=== PATIENT | female | born 1940 | race Caucasian/White ===

== ENCOUNTER → 2017-06-30 | Outpatient (CLI) | payer OTHER ==
[~2017-06-30] MED LIST: CELEBREX 200 M200 M1 PO; CIPRO500 M1 PO; COLACE100 MG PO; FLAGYL500 MG PO; FLEXERIL PO; HYDROCODONE-APA1 TA1 PO; NEURONTIN 300300 M1 PO; NORVASC5 MG PO; OXYCODONE HCL 55 MG; OXYCODONE HCL 55 MG PO; PHENAZOPYRIDIN200 M2 PO; PRILOSEC 20 MG20 MG PO; PROTONIX40 M1 PO; TYLENOL325 MG PO; ZESTORETIC 10-1 EACH PO; ZOCOR20 MG PO; ZOFRAN ODT4 MG PO
--- NOTE | 2017-07-20 08:18 | PAINCON ---
[address] [address] PAIN MANAGEMENT CONSULTATION Name: JAZMÍN ERICKSON Room: [facility] Suazo.#: [id number] Admission: 06/30/17 Attend Phys: Etta Pearce MD Discharge: Date of : 39 Report #: [id number] THIS REPORT FOR: //name// CC: Dr. Jackson Pearce DATE OF SERVICE: 06/30/2017 FOLLOWUP COMPLAINT: Back pain with pain down into the left leg. HISTORY OF PRESENT ILLNESS: The patient is a 76-year-old female who has returned to the pain clinic for evaluation. She is a patient who has been followed by Dr. Christofer Engel. This is my first visit with the patient. She has pain, which is radiating down into her left leg. Described as burning. She has responded well in the past to epidural steroid injections over the years. She used to follow up with Dr. Hughes. She states that he is no longer practicing. Notes that the pain is problematic when she is at rest and is exacerbated by activities such as prolonged sitting. She has been using hydrocodone. She finds that this is helpful. Her pain began in February 2014. There was no inciting injury or trauma. She has been diagnosed with lumbar radiculopathy with spinal stenosis of the lumbar spine. She has tried a number of medical therapies. She has used gabapentin. She has undergone epidural steroid injections and would like to proceed with an epidural injection today to help control her pain. ALLERGIES: MORPHINE, CODEINE, HYDROCODONE, MELOXICAM. CURRENT MEDICATIONS: Tylenol 325 mg 2 tablets every 6 hours p.r.n., Norvasc 5 mg at bedtime, lisinopril/hydrochlorothiazide 10/12.5 daily, Prilosec 20 mg daily, Zocor 20 mg at bedtime. Medication used in the past, gabapentin 300 mg. PAST MEDICAL HISTORY: 1. Symptomatic lumbar radiculopathy. 2. Spinal stenosis of lumbar spine. 3. Lumbosacral spondylosis, without myelopathy. 4. 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 5. Chronic intractable pain. 6. Hypertension. 7. Dyslipidemia. 8. Gastroesophageal reflux. 9. Lower extremity pain with paresthesia. SURGICAL HISTORY: 1. [place] [address] PAIN MANAGEMENT CONSULTATION Name: JAZMÍN ERICKSON Room: [facility]#: [id number] Admission: 06/30/17 Attend Phys: Etta Pearce MD Discharge: Date of : 39 Report #: [id number] 2. Cholecystectomy. 3. Ankle surgery. 4. Appendectomy. SOCIAL HISTORY: The patient worked as a guarded. Denies use of IV drugs. Denies use of alcohol. REVIEW OF SYSTEMS: Wears glasses, awakes at night to urinate, joint pain, muscle pain and cramps. LABORATORY DATA: No laboratory values are available at the time of our interview. PAIN CLINIC QUESTIONNAIRE: 1. The patient has osteoarthritis of her left knee. 2. Height 5 feet 5 inches. 3. Weight 188 pounds, BMI is 31.5. 4. Vital Signs: Blood pressure 123/75, pulse 85, respiratory rate 16, room air saturations 100%, temperature 97.8. 5. Pain intensity 10. 6. Fall risk. The patient has not fallen in the last 3 months. 7. Blood thinner. The patient is not on a blood thinner. 8. History of hypertension. The patient is being treated for hypertension. 9. Opioid greater than 6 weeks. The patient is under contract with the pain clinic and does receive opioid medications greater than 6 weeks. 10. Risk assessment tool. 11. Functional assessment tool. 12. Recreational drug use. The patient denies use of recreational drugs. 13. Tobacco. The patient denies use of tobacco. 14. Alcohol use. The patient denies use of alcoholic beverages. PHYSICAL EXAMINATION: GENERAL: The patient is a well-developed white female. She appears her stated age. She is alert and oriented x 3. Affect is appropriate. Speech is fluent. HEAD, EYES, EARS, NOSE, AND THROAT: Normocephalic, atraumatic. Extraocular eye muscles intact. Sclerae is nonicteric. Hearing is within normal limits. Mucous membranes are moist. The patient appears to have dentures. NECK: Without JVD or adenopathy. HEART: Regular rate. S1, S2. CHEST: Clear to auscultation without rales or rhonchi. ABDOMEN: Nontender. MUSCULOSKELETAL: Within normal limits without significant kyphosis, scoliosis or lordosis. EXTREMITIES: Upper extremity exam 5/5 for the major muscle groups of the upper extremity with symmetry and without sensory changes. Lower back: The patient has pain and discomfort in the lower portion of her back in [place] [address] PAIN MANAGEMENT CONSULTATION Name: JAZMÍN ERICKSON Room: [facility]#: [id number] Admission: 06/30/17 Attend Phys: Etta Pearce MD Discharge: Date of : 39 Report #: [id number] and right L5 paraspinous muscles. The patient has pain which is radiating down the posterior portion of her left leg. Muscle bulk in the lower extremities, appears to be symmetrical and equal. General muscle strength is 5/5. Straight leg raise on the left is positive. Gait slightly antalgic favoring the left lower extremity. ASSESSMENT: 1. Symptomatic lumbar radiculopathy with pain radiating down into the left leg. 2. Spinal stenosis of lumbar spine. 3. 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 4. Lumbosacral spondylosis without myelopathy. 5. Chronic intractable pain. 6. Hypertension. 7. Hyperlipidemia. 8. Gastroesophageal reflux disease -- patient stopped taking gabapentin secondary to GI problems. 9. Left lower extremity pain with paresthesia. RECOMMENDATIONS: We discussed treatment options with the patient. Risks and benefits of an epidural steroid injection were discussed. Possible complications of the procedure were reviewed. At this juncture, the patient would like to proceed with an epidural steroid injection. She is having pain and discomfort in the L5-S1 distribution on the left with radiation down into her leg with numbness, weakness and tingling. She would like to proceed. Possible complication of the procedure, which could include infection, increased bleeding, headache, nerve damage, no improvement in pain were discussed with the patient elects to proceed. PROCEDURE NOTE: The patient was taken to the procedure area. Her back was sterilely prepped with a Betadine solution. Fluoroscopy used in the anterior, posterior as well as lateral approach was used to identify the target side of the left L5-S1 paraspinous area. 0.25% bupivacaine was infiltrated into this area. It had been sterilely prepped with Betadine. A 17-gauge Tuohy with loss of resistance technique was used to gain access to the epidural space. There was no CSF, heme or paresthesia. Total of 80 mg Depo-Medrol, 40 mg triamcinolone and 2 mL of 0.25% bupivacaine was injected. The patient tolerated the procedure well. There were no complications. Her procedure was done. A Band-Aid was placed at the site. There was no bleeding. A total of 17 seconds fluoroscopy time was used. The pain was described as 0/10 at the time of discharge. She will continue with her current medications. A script for oxycodone 5 mg t.i.d. has been written. Also, the patient has been given a script for gabapentin. Hopefully, her stomach will tolerate this medication and continue to [place] [address] PAIN MANAGEMENT CONSULTATION Name: JAZMÍN ERICKSON Room: [facility]#: [id number] Admission: 06/30/17 Attend Phys: Etta Pearce MD Discharge: Date of : 39 Report #: [id number] We would like to thank you for letting us to participate in her care. We hope she continues to improve. <ELECTRONICALLY SIGNED> By: Etta Perace MD 07/20/17817 [id number]. Oneil Pearce MD /PMT
== END ==
LOC: M.PC 01:27
DX: M51.16 Intervertebral disc disorders with radiculopathy, lumbar region (principal); M48.061 Spinal stenosis, lumbar region without neurogenic claudication; M47.817 Spondylosis without myelopathy or radiculopathy, lumbosacral region; G89.29 Other chronic pain; I10 Essential (primary) hypertension; E78.5 Hyperlipidemia, unspecified; K21.9 Gastro-esophageal reflux disease without esophagitis; Z90.710 Acquired absence of both cervix and uterus; Z90.49 Acquired absence of other specified parts of digestive tract; Z98.890 Other specified postprocedural states; Z68.31 Body mass index [BMI] 31.0-31.9, adult

== ENCOUNTER → 2018-02-23 | Outpatient (CLI) | payer OTHER ==
--- NOTE | 2018-02-24 17:20 | PAINCON ---
[address] [address] PAIN MANAGEMENT CONSULTATION Name: JAZMÍN ERICKSON Room: [facility] Suazo.#: [id number] Admission: 02/23/18 Attend Phys: Etta Pearce MD Discharge: Date of : 39 Report #: [id number] THIS REPORT FOR: //name// CC: Jackson Pearce DATE OF SERVICE: 02/23/2018 FOLLOWUP HISTORY: The patient is a very pleasant 77-year-old female who has been seen in the pain clinic in the past. She has undergone epidural steroid injection. She has pain, which has been radiating down into her legs bilaterally, described as a burning pain and discomfort. She underwent an epidural steroid injection in 06/2017, she has noted some significant improvement as a result. Over the last few weeks, she has noted worsening of her pain and recurrence of her discomfort. Pain is radiating down into her low back with discomfort down into her knees bilaterally. The patient fell about a month ago, she injured her right leg and knee. She was told that she had a small muscle tear after she was seen in the Emergency Room. She states that her right knee swelled up significantly. Swelling has reduced somewhat at this juncture. She rates her pain as a 6/10. Feels that OxyIR, which she takes rarely and gabapentin continued to be helpful. She would like to undergo another injection today with hopes that her pain would improve. ALLERGIES: MORPHINE, CODEINE, HYDROCODONE, AND MELOXICAM. CURRENT MEDICATIONS: Tylenol 325 mg 2 tablets q. 6 hours p.r.n., Norvasc 5 mg at bedtime, lisinopril/hydrochlorothiazide 10/12.5 daily, Prilosec 20 mg, Zocor 20 mg at bedtime, and gabapentin 300 mg. PAIN CLINIC ASSESSMENT AND PQRS: 1. The patient has osteoarthritic changes in her left knee. 2. Height 5 feet 5 inches, weight 174 pounds, and BMI is 29. 3. Vital signs: Blood pressure 142/62, heart rate 78, respiratory rate 16, room air saturation is 98%, and temperature 97.9. 4. Pain intensity, 10. 5. Fall risk. The patient did fall about a month ago. She was seen in the Emergency Room. 6. Blood thinner. The patient is not on a blood thinning medication. 7. Hypertension. The patient is being treated for hypertension. 8. Opioids greater than 6 weeks. The patient is under contract with the pain clinic and receives her medications from one source. 9. Risk assessment tool, low for opioid use. 10. Functional assessment tool. 11. Recreational drug use. The patient denies use of recreational drugs. 12. Tobacco: The patient denies use of tobacco. 13. Alcohol: The patient denies [place] [address] PAIN MANAGEMENT CONSULTATION Name: JAZMÍN ERICKSON Room: [facility]#: [id number] Admission: 02/23/18 Attend Phys: Etta Pearce MD Discharge: Date of : 39 Report #: [id number] PHYSICAL EXAMINATION: GENERAL: The patient is a well-developed, well-nourished white female. Appears her stated age. She is alert and oriented x 3. Her affect is appropriate. Speech is fluent. Appears happy. HEENT: Normocephalic, atraumatic. Extraocular eye muscles intact. Sclerae nonicteric. Hearing within normal limits. Mucous membranes are moist. NECK: Without JVD or adenopathy. HEART: Regular rate. S1, S2. CHEST: Clear to auscultation. ABDOMEN: Nontender. MUSCULOSKELETAL: Without significant kyphosis, scoliosis, or lordosis. Upper extremity muscle strength is judged to be ____ for the major muscle groups in the upper extremity without sensory change. Low back, the patient has some pain and discomfort in the lower portion of her back with pain that is radiating down into her legs bilaterally, into the L5-S1 dermatomal distribution, left and right. The patient walks with a slight antalgic gait. Moves from the chair to a standing position using her hands. IMPRESSION: 1. Lumbar radiculopathy with pain radiating down to the posterior legs in the L4-L5 distribution. 2. History of spinal stenosis. 3. 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 4. Lumbosacral spondylosis without myelopathy. 5. Chronic intractable pain. 6. Hypertension. 7. Hyperlipidemia. 8. Gastroesophageal reflux disease - the patient monitors her use of gabapentin because of gastrointestinal upset. 9. Left and right lower extremity pain with paresthesias. RECOMMENDATIONS: We discussed treatment options with the patient. Risks and benefits of the injection, which could include, but are not limited to infection, increased muscle soreness, headache, bleeding, worsening of pain, and no improvement in pain. The patient elects to proceed. The patient received a good deal of improvement in June, after the last injection. She feels that another injection at this juncture would be beneficial and would like to proceed with that. PROCEDURE NOTE: The patient was taken to the examination area. We had previously discussed the possible complication of the procedure, which could include, but are not limited to infection, increased muscle soreness, headache, bleeding, worsening of pain, and no improvement in pain and the [place] [address] PAIN MANAGEMENT CONSULTATION Name: JAZMÍN ERICKSON Room: [facility]#: [id number] Admission: 02/23/18 Attend Phys: Etta Pearce MD Discharge: Date of : 39 Report #: [id number] The patient was assisted in getting on the examination table. Her back was sterilely prepped with a Betadine solution. Fluoroscopy using anterior, posterior as well as lateral viewing were implemented. The patient's back was infiltrated at the L5-S1 with a 25-gauge needle with 0.25% bupivacaine. A total of 80 mg Depo-Medrol and 40 mg triamcinolone were injected through a 17-gauge Tuohy needle, which had been advanced into the epidural space without evidence of CSF, heme, or paresthesia. The patient tolerated the procedure well. She was taken to the recovery room area. She remained in the pain clinic for an appropriate amount of time. Rates her pain as 5/10 at the time of discharge. We would like to thank you for letting us participate in her care. We hope she continues to improve. <ELECTRONICALLY SIGNED> By: Etta Pearce MD 02/24/18 1720 [id number]. Oneil Pearce MD /nt
== END | disposition home or self-care (01) ==
LOC: M.PC 04:43
DX: M51.16 Intervertebral disc disorders with radiculopathy, lumbar region (principal); M47.817 Spondylosis without myelopathy or radiculopathy, lumbosacral region; G89.29 Other chronic pain; I10 Essential (primary) hypertension; E78.5 Hyperlipidemia, unspecified; K21.9 Gastro-esophageal reflux disease without esophagitis; Z98.890 Other specified postprocedural states; Z79.899 Other long term (current) drug therapy; Z88.8 Allergy status to other drugs, medicaments and biological substances

== ENCOUNTER → 2018-03-28 | Outpatient (CLI) | payer OTHER ==
--- NOTE | ~2018-03-28 | PAINCON ---
[address] [address] PAIN MANAGEMENT CONSULTATION Name: JAZMÍN ERICKSON Room: [facility] [place]#: [id number] Admission: 03/28/18 Attend Phys: Etta Pearce MD Discharge: Date of : 39 Report #: [id number] THIS REPORT FOR: //name// CC: Dr. Carl Conner DATE OF SERVICE: 03/28/2018 PRIMARY CARE PHYSICIAN: Dr. Carl Conner. CHIEF COMPLAINT: Here for another injection, the other one was helpful. It is greater than 50% better. HISTORY OF PRESENT ILLNESS: The patient is a very pleasant 77-year-old female who has been seen in the pain clinic because of lumbar radiculopathy. She has undergone epidural steroid injections in the past and gleaned benefits from these. She is having pain that is radiating down into her legs bilaterally. There is a burning component. She notes that her pain is about 7/10. The patient's pain has increased since her drive here. She lives in the [facility]. It [place] [address]. She has been followed in the last month. She did fall down steps in 2018. Feels that oxycodone and gabapentin medications are still helpful. She does still have some at home. ALLERGIES: MORPHINE, CODEINE, HYDROCODONE, MELOXICAM. CURRENT MEDICATIONS: Tylenol 325 mg 2 tablets q.6 hours, Norvasc 5 mg at bedtime, lisinopril/hydrochlorothiazide 10/12.5, Prilosec 20 mg, Zocor 20 mg at bedtime, gabapentin 300 mg. PAIN CLINIC ASSESSMENT AND PQRS: 1. The patient has osteoarthritic changes in her knees. Height 5 feet 5 inches, weight 179 pounds, BMI is 29.7. 2. Vital Signs: Blood pressure 100/42, heart rate 75, respiratory rate 16, room air saturation 95%, and temperature 97.8. 3. Pain score is 7/10. 4. The patient has not fallen in the last month. 5. Blood thinner. The patient is not on a blood thinning medication. 6. Hypertension. The patient is being treated for hypertension. 7. Opioids greater than 6 weeks. The patient is under contract with the pain clinic, receives her medications from one source. 8. Risk assessment tool, low for opioid use. 9. Functional assessment tool. 10. Recreational drug use. The patient denies use of recreational drugs. 11. Tobacco: The patient denies use of tobacco. 12. Alcohol: The patient [place] [address] PAIN MANAGEMENT CONSULTATION Name: JAZMÍN ERICKSON Room: [facility]#: [id number] Admission: 03/28/18 Attend Phys: Etta Pearce MD Discharge: Date of : 39 Report #: [id number] PHYSICAL EXAMINATION: GENERAL: The patient is a well-developed, well-nourished, white female. Appears her stated age. She is alert and oriented x 3. Her affect is appropriate. Speech is fluent. She is happy, very loquacious. HEENT: Normocephalic, atraumatic. Extraocular eye muscles intact. Sclerae nonicteric. Mucous membranes are moist. NECK: Without adenopathy or JVD. HEART: Regular rate. S1, S2. CHEST: Clear to auscultation without rhonchi or rales. ABDOMEN: Nontender. Bowel sounds present. MUSCULOSKELETAL: Without kyphosis, scoliosis, or lordosis. Upper extremity muscle strength is judged to be 5-/5 for the major muscle groups in the upper extremity. The patient has some low back discomfort with pain that radiates down into the posterior portion of her legs in the L5-S1 dermatomal distribution on the left as well as the right. Does walk slightly with an antalgic gait. Changes from position in the chair from sitting to standing using her hands. IMPRESSION: 1. Lumbar radiculopathy with pain radiating down into the posterior portion of the legs to the L5-S1 dermatomal distribution. 2. History of spinal stenosis. 3. 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 4. Lumbosacral spondylosis without myelopathy. 5. Chronic intractable pain. 6. Hypertension. 7. Hyperlipidemia. 8. Gastroesophageal reflux disease. The patient monitors use of gabapentin because of gastrointestinal upset. 6. Left and right lower extremity pain with paresthesia. RECOMMENDATIONS: We discussed treatment options with the patient. Risks and benefits of an epidural steroid injection were again discussed. Possible complications of the procedure, which could include but are not limited to infection, worsening pain, no improvement in pain were discussed. The patient would like to proceed with another injection. Overall, she feels that things are going reasonably well, especially after the injection and would like to proceed. PROCEDURE NOTE: The patient was taken to the procedure area. She was assisted in getting on the examination table. Her back was sterilely prepped with a Betadine solution. A pillow had been placed on her abdomen to bolster and improve positioning. Fluoroscopy using anterior, posterior as well as lateral viewing were implemented. Her back at L5-S1 using a midline approach was injected with 0.25% bupivacaine. A 17-gauge Tuohy with loss of resistance technique was used to gain access, used a midline approach. After appropriate [facility] [address] [place] [address] PAIN MANAGEMENT CONSULTATION Name: JAZMÍN ERICKSON Room: [facility]#: [id number] Admission: 03/28/18 Attend Phys: Etta Pearce MD Discharge: Date of : 39 Report #: [id number] placement, 0.25% bupivacaine and 80 mg Depo-Medrol, 40 mg triamcinolone were injected. The patient tolerated the procedure well. There were no complications. She remained in the pain clinic for an appropriate amount of time. She will follow up in the future as needed. A total of 16 seconds fluoro time was utilized. We would like to thank you for letting us participate in her care. We hope she continues to improve. By: [id number]. Oneil Pearce MD /SELVIN
== END | disposition home or self-care (01) ==
LOC: M.PC 11:40
DX: M51.16 Intervertebral disc disorders with radiculopathy, lumbar region (principal); M47.27 Other spondylosis with radiculopathy, lumbosacral region; G89.29 Other chronic pain; I10 Essential (primary) hypertension; E78.5 Hyperlipidemia, unspecified; K21.9 Gastro-esophageal reflux disease without esophagitis; Z98.890 Other specified postprocedural states; Z79.899 Other long term (current) drug therapy; Z88.8 Allergy status to other drugs, medicaments and biological substances

== ENCOUNTER → 2018-09-14 | Outpatient (CLI) | payer OTHER ==
--- NOTE | 2018-09-20 14:27 | PAINCON ---
[address] [address] PAIN MANAGEMENT CONSULTATION Name: JAZMÍN ERICKSON Room: [facility] DENG Suazo.#: [id number] Admission: 09/14/18 Attend Phys: Etta Pearce MD Discharge: Date of : 39 Report #: [id number] THIS REPORT FOR: //name// CC: ____ ____ Etta Conner DATE OF SERVICE: 09/14/2018 CHIEF COMPLAINT: Return of pain and would like to get another injection. HISTORY: The patient is a 77-year-old female who has been followed in the pain clinic for a number of years. She has a history of lumbar radiculopathy. She has undergone epidural steroid injections in the past. She finds that they are helpful. She does complain of pain and discomfort involving her low back with pain that radiates down into her legs. Pain has been quite intense. She does live down by the [place] [facility]. Recently a grandchild was . She drove to [place] for the wedding and now has returned again for an injection. These long rides exacerbate her pain. Rates her pain today at a high level of 8/10. She denies any trauma. No real change in bowel or bladder function. She feels that the pain is worse with general activities of daily living. She uses medications as well as hot and cold. ALLERGIES: MORPHINE, CODEINE, HYDROCODONE, MELOXICAM. CURRENT MEDICATIONS: Tylenol 325 mg 2 tablets p.o. q.4-6 hours p.r.n., Norvasc 5 mg at bedtime, lisinopril/hydrochlorothiazide 10/12.5, Prilosec 20 mg, Zocor 20 mg at bedtime, gabapentin 300 mg. PAIN CLINIC ASSESSMENT/PQRS: 1. The patient is experiencing osteoarthritic changes in her knees. 2. Height 5 feet 5 inches, weight 174 pounds, BMI is 29.5. 3. Vital Signs: Blood pressure 116/54, heart rate 73, respiratory rate 16, room air saturation 97%, temperature 98.1. 4. Pain intensity 8/10. 5. Fall history: The patient has not fallen in the last 3 months. 6. Blood thinner. The patient is not on a blood thinning medication. 7. Hypertension. The patient is being treated for hypertension. 8. Opioid greater than 6 weeks. The patient is not on constant opioid regimen. The patient receives opioid medications through her primary physician. 10. Risk assessment tool, low for opioid use. 11. Functional assessment tool. 12. Recreational drug use. The patient denies. 13. Tobacco: The patient denies use of tobacco. 14. Alcohol: The patient denies [place] [address] PAIN MANAGEMENT CONSULTATION Name: JAZMÍN ERICKSON Room: [facility]#: [id number] Admission: 09/14/18 Attend Phys: Etta Pearce MD Discharge: Date of : 39 Report #: [id number] PHYSICAL EXAMINATION: GENERAL: The patient is a well-developed, well-nourished white female, appears her stated age. She is alert and oriented x 3. Her affect is appropriate. Speech is fluent. HEENT: Normocephalic, atraumatic. Extraocular eye muscles intact. Sclerae nonicteric. Mucous membranes are moist. The patient is wearing glasses. NECK: Without adenopathy or JVD. HEART: Regular rate. S1, S2. CHEST: Clear to auscultation without rhonchi or rales. ABDOMEN: Nontender. Bowel sounds present. MUSCULOSKELETAL: The patient without significant scoliosis, kyphosis, or lordosis. Upper extremity muscle strength is judged to be 5-/5 for the major muscle groups. Lower extremity, the patient has pain which is 5-/5. Has pain in the posterior portion of her leg with pain that is predominantly radiating down the left side more so than the right. Walks with a slight gait. Use her hand to go from a sitting to a standing position and before ambulation. IMPRESSION: 1. Lumbar radiculopathy with pain radiating down into the posterior portion of the legs at L5-S1, left side more problematic. 2. History of spinal stenosis. 3. 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 4. Lumbosacral spondylosis without myelopathy. 5. Chronic intractable pain. 6. Hypertension. 7. Hyperlipidemia. 8. Gastroesophageal reflux disease. RECOMMENDATIONS: We discussed treatment options with the patient. Risks and benefits of an epidural steroid injection were again reviewed. They include but are not limited to infection, worsening of pain, no improvement in pain, bleeding, spinal headache, nerve damage with paralysis, increased muscle soreness. The patient elects to proceed. PROCEDURE NOTE: The patient was taken to the procedure area. She was then assisted in getting on the examination table. Her back was sterilely prepped with a Betadine solution at the L5-S1 area. Fluoroscopy using anterior as well as lateral viewing were implemented. The patient's back was then infiltrated at the L5-S1 area using a midline approach with 0.25% bupivacaine and a 25-gauge needle. Aspiration was negative. A 17-gauge Tuohy with loss of resistance technique was used to gain access at the L5-S1 area. A total of 80 mg Depo-Medrol, 40 mg triamcinolone and 2 mL of 0.25% bupivacaine was injected. The patient tolerated the procedure well. There [place] [address] PAIN MANAGEMENT CONSULTATION Name: JAZMÍN ERICKSON Room: [facility]#: [id number] Admission: 09/14/18 Attend Phys: Etta Pearce MD Discharge: Date of : 39 Report #: [id number] would like to thank you for letting us participate in her care. We hope she continues to improve. <ELECTRONICALLY SIGNED> By: Etta Pearce MD 09/20/18 1427 1533 1813Isela. Oneil Pearce MD /SELVIN
== END | disposition home or self-care (01) ==
LOC: M.PC 04:58
DX: M51.16 Intervertebral disc disorders with radiculopathy, lumbar region (principal); M47.27 Other spondylosis with radiculopathy, lumbosacral region; G89.29 Other chronic pain; I10 Essential (primary) hypertension; M17.0 Bilateral primary osteoarthritis of knee; E78.5 Hyperlipidemia, unspecified; K21.9 Gastro-esophageal reflux disease without esophagitis; Z88.6 Allergy status to analgesic agent; Z88.8 Allergy status to other drugs, medicaments and biological substances; Z79.899 Other long term (current) drug therapy

== ENCOUNTER → 2019-01-09 | Outpatient (CLI) | payer OTHER ==
--- NOTE | 2019-01-10 09:09 | PAINCON ---
[address] [address] PAIN MANAGEMENT CONSULTATION Name: JAZMÍN ERICKSON Room: [facility]..#: [id number] Admission: 01/09/19 Attend Phys: Etta Pearce MD Discharge: Date of : 39 Report #: [id number] THIS REPORT FOR: //name// CC: Etta Conner DO DATE OF SERVICE: 01/09/2019 CHIEF COMPLAINT: Pain down in the left low back area and down into leg. HISTORY: The patient is a very pleasant 78-year-old female who has been seen in the pain clinic in the past because of lumbar radiculopathy. She has undergone epidural steroid injections and gleaned significant benefit from these. Over the last few weeks, she has noticed an increase in her pain and discomfort. It is radiating down the lower portion of her back involving the left leg. She feels that this has flared up. Last injection was quite beneficial. She continues to have pain that is radiating down into the hip, leg and into the calf. She would like to continue with injections at this juncture. ALLERGIES: MORPHINE, CODEINE, HYDROCODONE AND MELOXICAM. CURRENT MEDICATIONS: Tylenol 325 two tablets one p.o. q.4-6 hours, Norvasc 5 mg at bedtime, lisinopril/hydrochlorothiazide 10/12.5, Prilosec 20 mg, Zocor 20 mg at bedtime, gabapentin 300 mg 3 tablets p.o. at bedtime. PAIN CLINIC ASSESSMENT/PQRS: 1. The patient is experiencing osteoarthritic changes in her knee. She is not being treated for rheumatoid arthritis. 2. Height 5 feet 9 inches, weight 174 pounds, BMI is 29.0. 3. Vital signs: Blood pressure 121/66, heart rate 70, respiratory rate 16, room air saturation 98%, temperature 97.8. 4. Pain score 8/10. 5. Fall history: The patient has not fallen in the last 3 months. 6. Blood thinner. The patient is not on a blood thinning medication. 7. Hypertension. The patient is being treated for hypertension. 8. Opioids greater than 6 weeks. The patient is not consistently taking opioid medications. Does take them on occasion when her pain is quite problematic. 9. Risk assessment tool, low for opioid use. 10. Functional assessment tool. 11. Recreational drug use. The patient denies. 12. Tobacco: The patient denies use of tobacco. 13. Alcohol. The patient denies use of alcoholic beverages. PHYSICAL EXAMINATION: GENERAL: The patient is a well-developed, well-[place] [address] PAIN MANAGEMENT CONSULTATION Name: JAZMÍN ERICKSON [facility] [id number] Admission: 01/09/19 Attend Phys: Etta Pearce MD Discharge: Date of : 39 Report #: [id number] her stated age. She is alert and oriented x 3. Her affect is appropriate. Speech is fluent. HEENT: Normocephalic, atraumatic. Extraocular eye muscles intact. Sclerae nonicteric. Mucous membranes are moist. The patient is wearing glasses. NECK: Without adenopathy or JVD. HEART: Regular rate. S1, S2. CHEST: Clear to auscultation without rhonchi or rales. ABDOMEN: Nontender. Bowel sounds present. MUSCULOSKELETAL: Without significant scoliosis, kyphosis or lordosis. The patient has pain and discomfort in the lower extremities with strength judged to be 5-/5 for the major muscle groups in the lower extremity. The patient has pain that is radiating down the posterior portion of her left leg down to the calf with radiation and discomfort. Walks with slight antalgic gait. Uses her hands go from a sitting to a standing position before ambulating. IMPRESSION: 1. Lumbar radiculopathy with pain radiating down into the posterior portion of the L5-S1 on the left. 2. History of spinal stenosis. 3. 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 4. Lumbosacral spondylosis without myelopathy. 5. Chronic intractable pain. 6. Hypertension. 7. Hyperlipidemia. 8. Gastroesophageal reflux disease. RECOMMENDATIONS: We discussed treatment options with the patient. Risks and benefits of an epidural steroid injection were discussed. Possible complications were reviewed as we had in the past. She elects to proceed. PROCEDURE NOTE: The patient was taken to the procedure area. She was then assisted in getting on examination table. Her back was sterilely prepped with a Betadine solution. At the L5-S1 area, 0.25% bupivacaine was infiltrated in the left low back area at L5-S1 using a midline approach. After this area had been anesthetized using 0.25% bupivacaine, a 17-gauge Tuohy with loss of resistance technique was used to gain access to the epidural space. There was no CSF, heme or paresthesia. Total of 80 mg Depo-Medrol, 40 mg triamcinolone and 2 mL of 0.25% bupivacaine was injected. The patient tolerated the procedure well. There were no complications. Total of 10 seconds fluoroscopy time was used. The patient will follow up in the future as needed. A script of oxycodone 5 mg 1 p.o. q.8 hours p.r.n. has been written. She will follow up in [place] [address] PAIN MANAGEMENT CONSULTATION Name: JAZMÍN ERICKSON Room: [facility].R.#: [id number] Admission: 01/09/19 Attend Phys: Etta Pearce MD Discharge: Date of : 39 Report #: [id number] We would like to thank you for letting us participate in her care. We hope she continues to improve. <ELECTRONICALLY SIGNED> By: Etta Pearce MD 01/10/19 0909 1428 1523N. Oneil Pearce MD /nt
== END | disposition home or self-care (01) ==
LOC: M.PC 05:21
DX: M54.5 Low back pain (principal); M51.16 Intervertebral disc disorders with radiculopathy, lumbar region; M47.27 Other spondylosis with radiculopathy, lumbosacral region; G89.29 Other chronic pain; I10 Essential (primary) hypertension; E78.5 Hyperlipidemia, unspecified; K21.9 Gastro-esophageal reflux disease without esophagitis; Z79.899 Other long term (current) drug therapy; Z98.890 Other specified postprocedural states; Z88.8 Allergy status to other drugs, medicaments and biological substances

== ENCOUNTER → 2019-05-17 | Outpatient (CLI) | payer OTHER | END | disposition home or self-care (01) | LOC: M.PC 10:13 | DX: M54.16 Radiculopathy, lumbar region (principal); Z98.890 Other specified postprocedural states; Z88.8 Allergy status to other drugs, medicaments and biological substances; Z79.899 Other long term (current) drug therapy ==

== ENCOUNTER → 2019-10-23 | Outpatient (CLI) | payer BC ==
--- NOTE | 2019-11-06 08:25 | PAINCON ---
[address] [address] PAIN MANAGEMENT CONSULTATION Name: JAZMÍN ERICKSON Room: [facility].#: [id number] Admission: 10/23/19 Attend Phys: Etta Pearce MD Discharge: Date of : 39 Report #: [id number] THIS REPORT FOR: //name// cc: Carl Conner Robert M. DO ~ THIS REPORT FOR: //name// CC: Etta Conner DO DATE OF SERVICE: 10/23/2019 CHIEF COMPLAINT: Pain has returned in the low back area and I would like to have an epidural injection. HISTORY: The patient is a 78-year-old female who has been followed in the Pain Clinic in the past because of lumbar radiculopathy. Epidural steroid injections have been beneficial. She underwent an epidural injection in 05/2019. She received good relief. She has now started to notice a return of her pain. She is experiencing pain in the low back area. It is similar to that which she has had in the past, which radiated down into her legs. At this point, she would like to proceed with a new injection with another injection. There has been no change in bowel or bladder function. She continues to use oxycodone and gabapentin to help control her pain. Pain is worse with certain activities of daily living. Lifting is problematic as well. ALLERGIES: MORPHINE, CODEINE, HYDROCODONE, MELOXICAM. CURRENT MEDICATIONS: Tylenol 325 mg every 4-6 hours, Norvasc 5 mg at bedtime, lisinopril/hydrochlorothiazide 10/12.5, Prilosec 20 mg, Zocor 20 mg, gabapentin 300 mg 3 tablets at bedtime, and oxycodone 15 mg daily. PAIN CLINIC ASSESSMENT/PQRS: 1. The patient has some osteoarthritic changes in her knee. She is not being treated for rheumatoid arthritis. 2. Height 5 feet 5 inches, weight 166 pounds, BMI is 27.6. 3. Vital signs: Blood pressure is 109/47, heart rate 72, respiratory rate 18, room air saturation 99%, and temperature 98.2. 4. Pain intensity is 7/10. 5. Fall history: The patient has not fallen in the last 3 months. 6. Blood thinner. The patient is not on a blood thinning medication. 7. Hypertension. The patient is being treated for hypertension. 8. Opioids greater than 6 weeks. The patient receives medication from one source the Pain Clinic. 9. Risk assessment tool. The patient [place] [address] PAIN MANAGEMENT CONSULTATION Name: JAZMÍN ERICKSON Room: [facility]#: [id number] Admission: 10/23/19 Attend Phys: Etta Pearce MD Discharge: Date of : 39 Report #: [id number] 10. Functional assessment tool reviewed. 11. Recreational drug use. The patient denies. 12. Tobacco: The patient denies. 13. Alcohol. The patient denies use of alcoholic beverages. PHYSICAL EXAMINATION: GENERAL: The patient is a well-developed, well-nourished white female. Appears her stated age. She is alert and oriented x 3. Her affect is appropriate. Speech is fluent. HEENT: Normocephalic, atraumatic. Extraocular eye muscles intact. Sclerae nonicteric. Mucous membranes are moist. The patient is wearing a mask. NECK: Without adenopathy or JVD. HEART: Regular rate. LUNGS: Generally clear. ABDOMEN: Nontender. MUSCULOSKELETAL: Upper extremity muscle strength is judged to be 5-/5 for the major muscle groups in the upper extremity. The patient is without significant scoliosis, kyphosis or lordosis. She complains of pain and discomfort, which is radiating down into her low back area. She has had suffered from lumbar radiculopathy in the L5-S1 areas on the left side in the past. IMPRESSION: 1. History of spinal stenosis. 2. 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 3. Lumbosacral spondylosis without myelopathy. 4. Chronic intractable pain. 5. Hypertension. 6. Hyperlipidemia. 7. Gastroesophageal reflux. RECOMMENDATIONS: We discussed treatment options with the patient. At this juncture, we will proceed with an epidural steroid injection. At this juncture, we will petition her insurance carrier for precertification. We called the insurance carrier. We were unable to contact a inbound customer service representative. We will have the patient return at the next visit date. After precertification, we will proceed with an epidural steroid injection. A script for her medications will be rewritten for oxycodone. We would like to thank you for letting us participate in her care. We hope she continues to improve. <ELECTRONICALLY SIGNED> By: Etta Pearce MD 11/06/19 0825 1401 2143N. Oneil Pearce MD /nt
== END ==
LOC: M.PC 02:18
PROVIDERS: ATTEND Anesthesiology Pain Medicine
DX: M51.26 Other intervertebral disc displacement, lumbar region (principal); M47.817 Spondylosis without myelopathy or radiculopathy, lumbosacral region; G89.29 Other chronic pain; I10 Essential (primary) hypertension; E78.5 Hyperlipidemia, unspecified; K21.9 Gastro-esophageal reflux disease without esophagitis; Z87.39 Personal history of other diseases of the musculoskeletal system and connective tissue

== ENCOUNTER → 2019-11-01 | Outpatient (CLI) | payer BC ==
--- NOTE | 2019-11-20 15:37 | PAINCON ---
[address] [address] PAIN MANAGEMENT CONSULTATION Name: JAZMÍN ERICKSON Room: [facility] M.R.#: [id number] Admission: 11/01/19 Attend Phys: Etta Pearce MD Discharge: Date of : 39 Report #: [id number] THIS REPORT FOR: //name// cc: Carl Conner Robert M. DO ~ THIS REPORT FOR: //name// CC: Etta Conner DATE OF SERVICE: 11/01/2019 CHIEF COMPLAINT: Here for an epidural steroid injection. HISTORY: The patient is an 79-year-old female, who has been followed in the Pain Clinic because of lumbar radiculopathy. She has undergone epidural steroid injections. Her last injection was in 05/2019. She gleaned good relief from this. At this point, she has noticed recurrence of pain and discomfort and notes pain in the lower portion of her back, which radiates down into her legs. Denies any new change in bowel or bladder function. Activities of daily living can exacerbate the discomfort. ALLERGIES: MORPHINE, CODEINE, HYDROCODONE, MELOXICAM. CURRENT MEDICATIONS: Tylenol 325 mg every 4-6 hours p.r.n., Norvasc 5 mg at bedtime, lisinopril/hydrochlorothiazide 10/12.5, Prilosec 20 mg, Zocor 20 mg, gabapentin 300 mg 3 tablets at bedtime, oxycodone 15 mg. PAIN CLINIC ASSESSMENT AND PQRS: 1. The patient has some osteoarthritic changes in her knees. She is not being treated for rheumatoid arthritis. 2. Height 5 feet 5 inches, weight 166 pounds, BMI 27. 3. Vital signs: Blood pressure 116/36, heart rate 65, respiratory rate 16, room air saturation 99%, temperature 97.1. 4. Pain intensity: 7/10. 5. Fall history: The patient has not fallen in the last 3 months. 6. Blood thinner: The patient is not on a blood thinning medication. 7. Hypertension: The patient is being treated for hypertension. 8. Opioids greater than 6 weeks: The patient receives medications from one source. 9. Functional assessment tool: Low for opioid use. 10. Recreational drug use: The patient denies. 11. Tobacco: The patient denies. 12. Alcohol: The patient denies use of alcoholic beverages. PHYSICAL EXAMINATION: [place] [address] PAIN MANAGEMENT CONSULTATION Name: JAZMÍN ERICKSON Room: [facility]#: [id number] Admission: 11/01/19 Attend Phys: Etta Pearce MD Discharge: Date of : 39 Report #: [id number] GENERAL: The patient is a well-developed, well-nourished, white female. Appears her stated age. She is alert and oriented x 3. Her affect is appropriate. Speech is fluent. She is wearing a facial covering. HEENT: Normocephalic, atraumatic. Extraocular eye muscles intact. Sclerae nonicteric. Mucous membranes are moist. NECK: Without adenopathy or JVD. HEART: Regular rate. LUNGS: Clear. ABDOMEN: Nontender. MUSCULOSKELETAL: Upper extremity muscle strength is judged to be 5-/5 for the major muscle groups in the upper extremity. The patient is without significant scoliosis, kyphosis or lordosis. She does complain of pain and discomfort, which radiates down the lower portion of her back and suffers from pain and discomfort in the L5-S1 dermatomal distribution with pain primarily on the left side. IMPRESSION: 1. History of spinal stenosis. 2. 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 3. Lumbosacral spondylosis without myelopathy. 4. Chronic intractable pain. 5. Hypertension. 6. Hyperlipidemia. 7. Gastroesophageal reflux. RECOMMENDATIONS: We discussed treatment options with the patient. Risks and benefits of an epidural steroid injection were discussed. They include but are not limited to infection, worsening of pain, no improvement in pain, spinal headache, and the patient elects to proceed. PROCEDURE NOTE: The patient was taken to the procedure area. She was then assisted in getting on the examination table. A pillow was placed on her abdomen to bolster and improve positioning. Fluoroscopy using anterior, posterior as well as lateral viewing were implemented. At the L5-S1 area, 0.25% bupivacaine was infiltrated. This area had been sterilely prepped with betadine and allowed to dry. A 17-gauge Tuohy with loss of resistance technique was used to gain access to the epidural space at the L5-S1 area. There was no CSF, heme or paresthesia. Total of 20 seconds fluoroscopy time was used. The patient remained in the Pain Clinic for an appropriate amount of time. She will follow up in [place] [address] PAIN MANAGEMENT CONSULTATION Name: JAZMÍN ERICKSON Room: [facility]#: [id number] Admission: 11/01/19 Attend Phys: Etta Pearce MD Discharge: Date of : 39 Report #: [id number] We would like to thank you for letting us participate in her care. We hope she continues to improve. <ELECTRONICALLY SIGNED> By: Etta Pearce MD 11/20/19 1537 2157 0408N. Oneil Pearce MD /nt
== END | disposition home or self-care (01) ==
LOC: M.PC 01:44
PROVIDERS: ATTEND Anesthesiology Pain Medicine
DX: M51.16 Intervertebral disc disorders with radiculopathy, lumbar region (principal); M47.27 Other spondylosis with radiculopathy, lumbosacral region; G89.29 Other chronic pain; I10 Essential (primary) hypertension; E78.5 Hyperlipidemia, unspecified; K21.9 Gastro-esophageal reflux disease without esophagitis; Z98.890 Other specified postprocedural states; Z79.899 Other long term (current) drug therapy; Z88.8 Allergy status to other drugs, medicaments and biological substances

== ENCOUNTER → 2020-04-03 | Outpatient (CLI) | payer OTHER | END | disposition home or self-care (01) | LOC: M.PC 11:00 | PROVIDERS: ATTEND Anesthesiology Pain Medicine | DX: M51.26 Other intervertebral disc displacement, lumbar region (principal); M47.816 Spondylosis without myelopathy or radiculopathy, lumbar region; M54.5 Low back pain; G89.29 Other chronic pain; I10 Essential (primary) hypertension; Z79.899 Other long term (current) drug therapy; E78.5 Hyperlipidemia, unspecified; K21.9 Gastro-esophageal reflux disease without esophagitis; Z98.890 Other specified postprocedural states; Z90.49 Acquired absence of other specified parts of digestive tract; Z88.6 Allergy status to analgesic agent; Z88.5 Allergy status to narcotic agent ==

== ENCOUNTER → 2020-07-15 | Outpatient (CLI) | payer OTHER | END | disposition home or self-care (01) | LOC: M.PC 10:52 | PROVIDERS: ATTEND Anesthesiology Pain Medicine | DX: M51.16 Intervertebral disc disorders with radiculopathy, lumbar region (principal); M48.061 Spinal stenosis, lumbar region without neurogenic claudication; M47.897 Other spondylosis, lumbosacral region; G89.29 Other chronic pain; I10 Essential (primary) hypertension; E78.5 Hyperlipidemia, unspecified; K21.9 Gastro-esophageal reflux disease without esophagitis; Z98.890 Other specified postprocedural states; Z79.899 Other long term (current) drug therapy; Z90.49 Acquired absence of other specified parts of digestive tract; Z88.8 Allergy status to other drugs, medicaments and biological substances ==

== ENCOUNTER → 2021-03-19 | Outpatient (CLI) | payer OTHER | END | disposition home or self-care (01) | LOC: M.PC 10:18 | PROVIDERS: ATTEND Anesthesiology Pain Medicine | DX: M54.16 Radiculopathy, lumbar region (principal); M51.36 Other intervertebral disc degeneration, lumbar region; M47.897 Other spondylosis, lumbosacral region; G89.29 Other chronic pain; I10 Essential (primary) hypertension; E78.5 Hyperlipidemia, unspecified; K21.9 Gastro-esophageal reflux disease without esophagitis; Z98.890 Other specified postprocedural states; Z79.899 Other long term (current) drug therapy; Z90.49 Acquired absence of other specified parts of digestive tract; Z88.8 Allergy status to other drugs, medicaments and biological substances; Z88.6 Allergy status to analgesic agent ==